=== PATIENT | male | born 1980 | race Caucasian/White ===

== ENCOUNTER 2024-05-16 14:43 | Emergency (ER) | payer SELFPAY ==
[2024-05-16] VITALS (19 sets, daily range): BP systolic 120–139; BP diastolic 78–97; PULSE 60–93; RESP 11–33; TEMP 36.7–36.9; O2SAT 97–100
[2024-05-16] MEDS: SODIUM CHLORIDE 0.9% IV 1,000 ML 999 ML IV CONT ×2 (15:17→16:23)
--- NOTE | 2024-05-16 16:13 | ED.GENADULT ---
HPI - General Adult General Chief complaint: Unspecified Stated complaint: ?heat exhaustion Time Seen by Provider: 05/16/24 14:53 History of Present Illness HPI narrative: Patient is a 44-year-old male who presents ER with concerns for heat related illness. 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 He had 2 bottles of water. He was getting lightheaded and dizzy when he goes from sitting to standing on off during the day. When they were getting ready to finished her job he cannot on him again. He also became short of breath. His hand started to spasm as well as his mouth. He was shaking uncontrollably for approximately 8-9 minutes but did not having loss of consciousness according to a co-worker who is here with him. There is no loss of urine. No tongue biting. Related Data Allergies Allergy/AdvReac Type Severity Reaction Status Date / Time No Known Allergies Allergy Verified 05/16/24 14:51 Review of Systems Review of Systems: All systems reviewed & are unremarkable except as noted in HPI and below Constitutional: Constitutional: Denies chills, Reports fatigue and Denies fever(s) ENT: Reports system reviewed and no additional complaints, except as documented Cardiovascular: Cardiovascular: Reports no additional cardiovascular complaints Respiratory: Respiratory: Reports no additional respiratory complaints Gastrointestinal: Gastrointestinal: Reports no additional gastrointestinal complaints Musculoskeletal: Musculoskeletal: Denies back pain, Denies arthralgias, Denies joint swelling, Reports muscle cramps and Reports stiffness Integumentary/Breasts: Skin/Breast: Reports system reviewed and no additional complaints, except as docu PMFSH Past Medical History Medical History (Updated 05/16/24 @ 17:33 by Nelson Owens MD) Healthy adult male Surgical History Surgical History (Updated 05/16/24 @ 16:19 by Nelson Owens MD) No history of previous surgery Exam Narrative: GENERAL: Well-appearing, well-nourished, and in no acute distress. HEAD: Normocephalic, atraumatic. ENT: Mucous membranes moist. No evidence of tongue biting. NECK: Supple. CHEST: Clear to auscultation. No respiratory distress. HEART: Regular rate and rhythm. Normal peripheral pulses. ABDOMEN: Soft, nontender, nondistended. EXTREMITIES: Normal range of motion. No edema. SKIN: Warm, dry, no rash. NEURO: Alert and oriented x3. PSYCH: Normal mood and affect. Course Course Emergency Course: Patient feels better after 2 L IV fluid. Discussed elevated CK level. Discussed making sure he drinks plenty water and make sure he is urinating clear. Discussed return precautions. Discharge. Vital Signs Vital signs: Vital Signs Temperature 98.1 F 05/16/24 14:43 Pulse Rate 85 05/16/24 14:43 Respiratory Rate 22 H 05/16/24 14:43 Blood Pressure 132/86 05/16/24 14:43 Pulse Oximetry 99 05/16/24 14:43 Oxygen Delivery Room Air 05/16/24 14:43 Temperature 98.1 F 05/16/24 14:43 Pulse Rate 85 05/16/24 14:43 Respiratory Rate 22 H 05/16/24 14:43 Blood Pressure 132/86 05/16/24 14:43 Pulse Oximetry 99 05/16/24 14:43 Oxygen Delivery Room Air 05/16/24 14:43 Medical Decision Making Vital Signs Vital Signs: Vital Signs Temperature 98.1 F 05/16/24 14:43 Pulse Rate 85 05/16/24 14:43 Respiratory Rate 22 H 05/16/24 14:43 Blood Pressure 132/86 05/16/24 14:43 Pulse Oximetry 99 05/16/24 14:43 Oxygen Delivery Room Air 05/16/24 14:43 Temperature 98.1 F 05/16/24 14:43 Pulse Rate 85 05/16/24 14:43 Respiratory Rate 22 H 05/16/24 14:43 Blood Pressure 132/86 05/16/24 14:43 Pulse Oximetry 99 05/16/24 14:43 Oxygen Delivery Room Air 05/16/24 14:43 Lab Data 05/16/24 16:18 05/16/24 16:18 Labs: Lab Results 05/16/24 Range/Units 16:18 WBC 13.7 H (4.5-10.0) K/mm3 RBC 4.38 L
[2024-05-16 16:32] LABS: Alanine Aminotransferase 36 U/L (6-50); Albumin Level 4.4 g/dL (3.5-5.1); Alkaline Phosphatase 92 U/L (38-126); Anion Gap 10 mmol/L (4-12); Aspartate Amino Transferase 34 U/L (17-59); Bilirubin,Total 0.8 mg/dL (0.2-1.3); Blood Urea Nitrogen 8 mg/dL (9-20); Calcium 8.6 mg/dL (8.4-10.2); Carbon Dioxide 21 mmol/L (22-30); Chloride 107 mmol/L (98-107); Creatine Kinase 241 U/L (55-170); Estimated CRCL calculation 118 ml/min; Estimated Glomerular Filt Rate > 60; Glucose 112 mg/dL (65-110); Potassium 3.6 mmol/L (3.4-5.0); Sodium 138 mmol/L (137-145)
[2024-05-16 16:34] LABS: Basophils Absolute Auto 0.1 K/mm3 (0.0-0.1); Basophils Percent Auto 0.4 % (0.2-1.2); Eosinophils Percent Auto 0.1 % (0-4.4); Hematocrit 38.6 % (42.0-52.0); Hemoglobin 14.1 g/dL (14.0-18.0); Immature Granulocyte Absolute 0.04 K/mm3 (0.00-0.031); Immature Granulocyte Percent A 0.3 % (0-0.5); Lymphocytes Absolute Auto 1.78 K/mm3 (0.9-3.2); Mean Corpuscular HGB Conc 36.5 g/dl (32-36); Mean Corpuscular Hemoglobin 32.2 pg (26-34); Mean Corpuscular Volume 88.1 fl (80-100); Mean Platelet Volume 10.5 fl (7.4-10.4); Monocytes Absolute Auto 0.7 K/mm3 (0.1-0.6); Monocytes Percent Auto 5.2 % (2.6-8.5); Platelet Count Result 244 k/mm3 (150-375); Red Blood Count 4.38 M/mm3 (4.6-6.20); Red Cell Distribution Width 11.7 % (11.5-14.5); White Blood Count 13.7 K/mm3 (4.5-10.0)
== END 2024-05-16 17:39 | disposition home or self-care (01) ==
PROVIDERS: Emergency Provider Emergency Medicine
DX: E86.0 Dehydration (principal)
CPT/HCPCS: 36415; 80053; 82550; 85025; 96360; 96361; 99283; J7030